=== PATIENT | male | born 1970 | race Caucasian/White ===

== ENCOUNTER 2023-05-06 19:06 | Emergency (ER) | payer OTHER, SELFPAY ==
[2023-05-06 19:15] VITALS: BP 146/91; PULSE 88; RESP 18; TEMP 37.1; O2SAT 98
--- NOTE | 2023-05-06 19:41 | ED.BACK ---
HPI - Back Pain/Injury General Chief Complaint: Back Pain/Injury Stated Complaint: BACK PAIN Time Seen by Provider: 05/06/23 19:26 Source: patient Mode of arrival: Ambulatory Limitations: no limitations History of Present Illness HPI Narrative: Patient is a 52-year-old male. Arrives the emergency department today for approximately 4 days of right-sided lower back discomfort. He states he woke up earlier this week with the discomfort. No radiation to his legs. No urinary symptoms. No change in bowel habits. No specific trauma. He has been doing Tylenol and ibuprofen. No fevers. No skin rashes. Has had lower back pain in the past with radiation down into his leg but this feels different than that. It is not worse with palpation but is worse with movement and positions. Related Data Previous Rx's Medication Instructions Recorded cyclobenzaprine 10 mg tablet 10 mg PO TID PRN muscle spasm #10 05/06/23 tabs hydrocodone 5 mg-acetaminophen 325 1 tab PO Q8H PRN pain #7 tabs 05/06/23 mg tablet prednisone 20 mg tablet 20 mg PO DAILY 2 days #2 tabs 05/06/23 Allergies Allergy/AdvReac Type Severity Reaction Status Date / Time No Known Drug Allergies Allergy Verified 05/06/23 19:15 Review of Systems Constitutional Constitutional: Reports system reviewed and no additional complaints, except as documented Gastrointestinal Gastrointestinal: Reports system reviewed and no additional complaints, except as documented Musculoskeletal Musculoskeletal: Reports system reviewed and no additional complaints, except as documented Integumentary/Breasts Skin/Breast: Reports system reviewed and no additional complaints, except as documented Neurologic Neurologic: Reports system reviewed and no additional complaints, except as documented Hematologic/Lymphatic On Anticoagulants: No Patient History Social History Smoking Status: Current every day smoker Smoking Status: Current every day smoker tobacco type: cigarettes Substance Use Type: does not use Exam Initial Vital Signs Initial Vital Signs: Vital Signs Temperature 98.7 F 05/06/23 19:15 Pulse Rate 88 05/06/23 19:15 Respiratory Rate 18 05/06/23 19:15 Blood Pressure 146/91 H 05/06/23 19:15 Pulse Oximetry 98 05/06/23 19:15 Oxygen Delivery Method Room Air 05/06/23 19:15 Back/Spine/Pelvis Thoracic/Lumbar Spine: paraspinal tenderness (Mild right-sided paraspinal), No thoracic spinal tenderness and No lumbar spinal tenderness Skin General: no rashes or lesions noted Neuro General: patient alert, patient awake and moves all extremities Extrem General: capillary refill normal Course Orders Ordered: Discontinued Medications Hydrocodone Bitart/Acetaminophen (Hydrocodone/Acet 5/325 Prepack) 1 bottle MISC DIRECTED ONE Stop: 05/06/23 20:34 Last Admin: 05/06/23 20:43 Dose: 1 bottle Documented By: TRU Cyclobenzaprine HCl (Cyclobenzaprine 10 Mg Prepack) 1 bottle MISC DIRECTED ONE Stop: 05/06/23 20:34 Last Admin: 05/06/23 20:43 Dose: 1 bottle Documented By: TRU Hydromorphone HCl (Hydromorphone 1 Mg Inj) 1 mg IM NOW ONE Stop: 05/06/23 19:42 Last Admin: 05/06/23 19:52 Dose: 1 mg Documented By: TRU Ketorolac Tromethamine (Ketorolac 30 Mg/Ml Vial) 30 mg IM NOW ONE Stop: 05/06/23 19:42 Last Admin: 05/06/23 19:48 Dose: 30 mg Documented By: TRU Prednisone (Prednisone 20 Mg Tablet) 20 mg PO NOW ONE Stop: 05/06/23 20:34 Last Admin: 05/06/23 20:42 Dose: 20 mg Documented By: TRU Vital Signs Vital signs: Vital Signs - 8 hr 05/06/23 19:15 Temperature 98.7 F Pulse Rate 88 Respiratory Rate 18 Blood Pressure 146/91 H Pulse Oximetry 98 Oxygen Delivery Method Room Air MDM - Back Pain/Injury MDM Narrative Medical decision making narrative: Low suspicion for cauda equina. I suspect that this is muscular in origin because it does seem to be paraspinal in the lumbar region. He has no radicular symptoms. No specific trauma. He did not fall. No indication for radiologic studies. It did feel somewhat better after pain medication here in the ER. Will discharge home with symptom control. Instructed to continue with conservative measures such as heat/ice/massage. He was given return precautions. He expressed understanding and agreement. Discharge Plan Departure Patient Disposition: Home Clinical Impression: Strain of lumbar region Instructions: DI for Low Back Pain Activity Restrictions/Additional Instructions: Continue to do conservative measures such as stretching/heat/ice and ibuprofen and Tylenol. Take the medications that you were given a prescription for today as directed. Contact your primary care doctor for follow-up. Prescriptions: New prednisone 20 mg tablet 20 mg PO DAILY 2 Days Qty: 2 0RF cyclobenzaprine 10 mg tablet 10 mg PO TID PRN (Reason: muscle spasm) Qty: 10 0RF hydrocodone-acetaminophen 5-325 mg tablet 1 tab PO Q8H PRN (Reason: pain) Qty: 7 0RF Referrals: Miscellaneous,Doctor, MD [Primary Care Provider] - Stand Alone Forms: Patient Portal/API
[2023-05-06] MEDS: KETOROLAC 30 MG/ML VIAL IM (19:48)
[2023-05-06] MEDS: HYDROMORPHONE 1 MG INJ IM (19:52)
[2023-05-06] MEDS: predniSONE 20 MG TABLET PO (20:42)
[2023-05-06] MEDS: CYCLOBENZAPRINE 10 MG PREPACK 1 BOTTLE MISC (20:43)
[2023-05-06] MEDS: HYDROCODONE/ACET 5/325 PREPACK 1 BOTTLE MISC (20:43)
[2023-05-06 20:50] VITALS: BP 181/82; PULSE 67; RESP 18; O2SAT 99
== END 2023-05-06 20:50 | disposition home or self-care (01) ==
PROVIDERS: Emergency Provider Emergency Medicine
DX: S39.012A Strain of muscle, fascia and tendon of lower back, initial encounter (principal)
CPT/HCPCS: 96372; 99283; J1170; J1885